=== PATIENT | female | born 1965 | race Hispanic/Latino ===

== ENCOUNTER 2018-08-26 08:43 | Emergency (ER) | payer BC, OTHER ==
[2018-08-26 08:50] VITALS: RESP 20; BMI 32.3
--- NOTE | 2018-08-26 09:29 | C.PDOC ---
History Of Present Illness 52 y/o female brought in by ambulance, complaining of pain to the right 5th finger s/p fall earlier today. Patient states she tripped and fell forward, striking the medial aspect of right hand. Otherwise she denies any numbness, tingling, or weakness. No open wounds. Time Seen by Provider: 08/26/18 08:49 Chief Complaint (Nursing): Upper Extremity Problem/Injury History Per: Patient History/Exam Limitations: no limitations Onset/Duration Of Symptoms: Hrs Current Symptoms Are (Timing): Still Present Past Medical History Reviewed: Historical Data, Nursing Documentation, Vital Signs Vital Signs: Last Vital Signs Temp 98.2 F 08/26/18 08:49 Pulse 70 08/26/18 08:49 Resp 20 08/26/18 08:49 BP 133/82 08/26/18 08:49 Pulse Ox 98 08/26/18 08:49 - Medical History PMH: Seizures Surgical History: No Surg Hx Family History: States: No Known Family Hx - Social History Hx Tobacco Use: Yes Hx Alcohol Use: No Hx Substance Use: No - Immunization History Hx Tetanus Toxoid Vaccination: No Hx Influenza Vaccination: No Review Of Systems Except As Marked, All Systems Reviewed And Found Negative. Constitutional: Negative for: Fever Cardiovascular: Negative for: Chest Pain Respiratory: Negative for: Shortness of Breath Musculoskeletal: Positive for: Hand Pain (right 5th finger) Skin: Negative for: Rash, Lesions, Bruising Neurological: Negative for: Weakness, Numbness, Incoordination Physical Exam - Physical Exam Appears: Non-toxic, No Acute Distress Skin: Normal Color, Warm, Dry Head: Atraumatic, Normacephalic Eye(s): bilateral: Normal Inspection Oral Mucosa: Moist Neck: Normal ROM Chest: Symmetrical Cardiovascular: Rhythm Regular, No Murmur Respiratory: Normal Breath Sounds, No Accessory Muscle Use Extremity: Normal ROM, Tenderness (to the right 5th MCP), No Deformity, No Swelling, Other (No abrasions) Pulses: Left Radial: Normal, Right Radial: Normal Neurological/Psych: Oriented x3, Normal Speech, Normal Motor, Normal Sensation ED Course And Treatment O2 Sat by Pulse Oximetry: 98 (RA) Pulse Ox Interpretation: Normal - Other Rad R 5th finger and hand X-Ray: Interpreted by Me (no fx/disloc) Medical Decision Making Medical Decision Making: R 5th finger sprain @ MCP, minimal swelling Disposition Doctor Will See Patient In The: Office Counseled Patient/Family Regarding: Studies Performed, Diagnosis - Disposition Referrals: Devante Garcia MD [Staff Provider] - Aldo Ayala MD [Staff Provider] - Disposition: HOME/ ROUTINE Disposition Time: 09:28 Condition: GOOD Additional Instructions: ice packs 1/2 hour per hour, nothing hot motrin/Advil/Ibuprofen 400-600 mg every 6 hours as needed Splint for 3 days outpatient follow-up with Ortho/Hand specialist as needed Instructions: Finger Sprain (DC) Forms: [employer] ([employer]) - Clinical Impression Clinical Impression: Finger sprain - Scribe Statement The provider has reviewed the documentation as recorded by the Scribe (Karina Crawford) Provider Attestation: All medical record entries made by the Scribe were at my direction and personally dictated by me. I have reviewed the chart and agree that the record accurately reflects my personal performance of the history, physical exam, medical decision making, and the department course for this patient. I have also personally directed, reviewed, and agree with the discharge instructions and disposition.
[2018-08-26 09:36] VITALS: BP 137/86; PULSE 63; TEMP 98.1
--- NOTE | 2018-08-26 09:54 | RAD ---
Date of service: 08/26/2018 PROCEDURE: Right small finger radiographs. HISTORY: foosh, pain @ R 5th MCP COMPARISON: None. TECHNIQUE: AP radiograph of the right hand, as well as spot oblique and lateral images of small finger were obtained. FINDINGS: RIGHT SMALL FINGER: Normal right small finger, without fracture or focal lesion. Remainder of the right hand (as seen on the AP view) grossly unremarkable. JOINTS: Normal. SOFT TISSUES: Swelling 5th metacarpal-phalangeal level OTHER FINDINGS: None. IMPRESSION: No fracture or dislocation is suggested. Mild soft tissue swelling in the area of interest is noted.
[2018-08-26 11:02] VITALS: O2SAT 98
== END 2018-08-26 09:49 | disposition home or self-care (01) ==
LOC: C.ER 08:43
DX: S63.616A Unspecified sprain of right little finger, initial encounter (principal); W01.0XXA Fall on same level from slipping, tripping and stumbling without subsequent striking against object, initial encounter; Y92.9 Unspecified place or not applicable